=== PATIENT | female | born 1950 | race Caucasian/White ===

== ENCOUNTER → 2021-07-21 | Outpatient (CLI) | payer OTHER ==
--- NOTE | 2021-07-22 17:32 | CARDNUC ---
[place] [address] CARDIAC NUCLEAR IMAGING REPORT Name: SHANNA HEREDIA Room: [facility]#: [id number] Admission: 07/21/21 Attend Phys: Eusebia Franz, Discharge: Date of : 54 Date of Service: 07/22/21 1731 Report #: [id number] THIS REPORT FOR: cc: Saba Arnold MD, Jayne Lora MD [place], Michael J. MD [facility] ~ APPROVED REPORT Study performed: 07/21/2021 12:30:00 Indication: Dyspnea Patient Location: Out-Patient Stress Nurse: Leigh Lambert RN Ht: 4 ft 8 in Wt: 113 lbs BSA: 1.39 m2 BMI: 25.33 Medical History Medical History: Arrhythmia, CAD s/p CABG, CAD s/p NM, CAD s/p stent Medications: repatha, metoprolol, asa-81 Allergies: multiple Cardiac Risk Factors: Age, FHX of CAD, HTN, Hyperlipidemia Previous Cardiac Procedures: CABG, PCI, Myocardial infarction Exercise History: Sedentary Meds Held (24 hrs): metoprolol Resting Data Rest SPECT myocardial perfusion imaging was performed in supine position 30 minutes following the intravenous injection of 11.3 mCi of Tc-99m Sestamibi. Time of rest injection: 12:50 The images were gated to evaluate regional wall motion and calculate left ventricular ejection fraction. Administration Route: IV Administration Site: Right AC Pharmacologic Stress Pharmacologic stress test was performed by injecting Regadenoson 0.4 mg IV push over 10-15 seconds immediately followed by the intravenous injection of 32.6 mCi of Tc-99m Sestamibi. Time of stress injection: 14:50 Administration Route: [place] [address] CARDIAC NUCLEAR IMAGING REPORT Name: SHANNA HEREDIA Room: [facility]#: [id number] Admission: 07/21/21 Attend Phys: Eusebia Franz, Discharge: Date of : 54 Date of Service: 07/22/21 1731 Report #: [id number] Administration Site: Left AC Gated Stress SPECT was performed 45 minutes after stress injection. The images were gated to evaluate regional wall motion and calculate left ventricular ejection fraction. Prone imaging was performed. Stress Test Details Stress Test: Pharmacologic stress testing performed using 0.4 mg of regadenoson per 5 mL given IV over 10 seconds. Reason for pharmacologic stress test: physical limitation. HR Max Heart Rate (APMHR): 151 bpm Resting HR: 90 bpm Target HR (85% APMHR): 128 bpm Max HR Achieved: 105 bpm % of APMHR: 69 Recovery HR: 108 bpm BP Resting BP: 132/81 mmHg Max BP: 145/66 mmHg Recovery BP: 130/80 mmHg ECG Resting ECG: Sinus Rhythm, nonspecific ST-T abnormalities Stress ECG: Sinus tachycardia, nonspecific ST- T wave abnormalities ST Change: None Arrhythmia: None Recovery ECG: Sinus Rhythm, nonspecific ST-T abnormalities Recovery ST Change: None Recovery Arrhythmia: None Clinical The patient tolerated Lexiscan infusion without significant cardiac symptoms. Nurse Comments Stress nurse was Yanira Santana Rn Pt unable to walk on treadmill due to unsteady gait Stress ECG Conclusion The baseline twelve-lead EKG shows sinus rhythm with diffuse nonspecific ST segment depression that is downsloping. EKGs obtained during and post Lexiscan infusion show sinus rhythm [place] [address] CARDIAC NUCLEAR IMAGING REPORT Name: SHANNA HEREDIA Room: [facility]#: [id number] Admission: 07/21/21 Attend Phys: JonahNaomi Miller Osei, Discharge: Date of : 54 Date of Service: 07/22/21 1731 Report #: [id number] segment changes when compared to baseline. There were no significant stress-induced arrhythmias. Study Quality Study: Good Artifact: No artifact Study Data At rest, the left ventricular ejection fraction was 80%.. Post stress, the left ventricular ejection was 89%.. TID = 0.66. Perfusion Perfusion images obtained at rest and post Lexiscan stress show uniform uptake of the radioisotope throughout the myocardium. There were no defects to suggest infarct or ischemia. Wall Motion Normal left ventricular wall motion. Nuclear Conclusion ECG Findings: non-diagnostic Clinical Findings: negative for ischemia Nuclear Findings: negative for ischemia Exercise Capacity: not assessed Left Ventricular Function: normal Risk Study: low Perfusion images show no defect to suggest infarct or ischemia. Left ventricular systolic function appears normal on gated studies. This is a low risk study. <Conclusion> The baseline twelve-lead EKG shows sinus rhythm with diffuse nonspecific ST segment depression that is downsloping. EKGs obtained during and post Lexiscan infusion show sinus rhythm with no significant ST segment changes when compared to baseline. There were no significant stress-induced arrhythmias. <ELECTRONICALLY SIGNED> By: Neymar Call MD, FACC 07/22/211730 30 30 Neymar Call MD, FACC /INF
== END ==
LOC: M.NUC 06-18 10:29
PROVIDERS: ATTEND Internal Medicine
DX: I25.10 Atherosclerotic heart disease of native coronary artery without angina pectoris (principal)